=== PATIENT | female | born 1975 | race Caucasian/White ===

== ENCOUNTER 2017-09-02 20:01 | Emergency (ER) | payer MEDICAID ==
[~2017-09-02] VITALS: Ht 162.6 cm; Wt 119.7 kg
[2017-09-02] MEDS ORDERED: lexapro (20:25)
[2017-09-02] MEDS ORDERED: hydroxyzine (20:26)
[2017-09-02 20:55] LABS: BASOPHILS % (AUTO) 1 % (0-1); EOSINOPHILS # (AUTO) 0.12 x10^3/uL (0-0.4); EOSINOPHILS % (AUTO) 1 % (1-7); LYMPHOCYTES # (AUTO) 2.79 x10^3/uL (1-3.4); LYMPHOCYTES % (AUTO) 25 % (22-44); MD NO; MEAN CORPUSCULAR HEMOGLOBIN 30.7 pg (27.0-34.8); MEAN CORPUSCULAR HGB CONC 33.7 g/dL (32.4-35.8); MEAN CORPUSCULAR VOLUME 91.3 fL (80-100); MEAN PLATELET VOLUME 9.5 fL (7.4-10.4); MONOCYTES % (AUTO) 7 % (2-9); NEUTROPHILS % (AUTO) 66 % (42-75); PLATELET COUNT 321 x10^3/uL (130-400); RED BLOOD COUNT 4.87 x10^6/uL (3.82-5.3); RED CELL DISTRIBUTION WIDTH 15.1 % (9.6-15.2)
[2017-09-02 20:56] LABS: ALBUMIN 3.3 g/dL (3.4-5.0); ANION GAP 7 mmol/L (5-15); CALCIUM 9.1 mg/dL (8.5-10.1); CHLORIDE 108 mmol/L (98-107); CREATININE 0.86 mg/dL (0.55-1.02)
[2017-09-02 21:32] VITALS: BP 132/81
== END 2017-09-02 21:36 | disposition home or self-care (01) ==
LOC: ED 21:07
DX: M54.2 Cervicalgia (principal)
CPT/HCPCS: 36415; 80048; 82040; 85025; 99284

== ENCOUNTER 2018-04-17 11:07 | Emergency (ER) | payer MEDICAID ==
[~2018-04-17] VITALS: Ht 167.6 cm; Wt 113.8 kg
[~2018-04-17 11:07] MED LIST: hydroxyzine; lexapro
[2018-04-17 11:23] VITALS: BP 124/82
--- NOTE | 2018-04-17 12:28 | NUR ---
Pt to room from [facility], ambulatory with steady gait.
[2018-04-17 12:38] LABS: BASOPHILS # (AUTO) 0.07 x10^3/uL (0-0.1); BASOPHILS % (AUTO) 1 % (0-1); EOSINOPHILS % (AUTO) 0 % (1-7); LYMPHOCYTES # (AUTO) 2.28 x10^3/uL (1-3.4); LYMPHOCYTES % (AUTO) 22 % (22-44); MD NO; MEAN CORPUSCULAR HEMOGLOBIN 31.9 pg (27.0-34.8); MEAN CORPUSCULAR HGB CONC 35.1 g/dL (32.4-35.8); MEAN CORPUSCULAR VOLUME 90.9 fL (80-100); MEAN PLATELET VOLUME 10.7 fL (7.4-10.4); MONOCYTES # (AUTO) 0.53 x10^3/uL (0.2-0.8); MONOCYTES % (AUTO) 5 % (2-9); NEUTROPHILS % (AUTO) 73 % (42-75); PLATELET COUNT 303 x10^3/uL (130-400); RED BLOOD COUNT 5.17 x10^6/uL (3.82-5.3); RED CELL DISTRIBUTION WIDTH 14.7 % (9.6-15.2)
[2018-04-17 12:49] LABS: ALBUMIN 3.7 g/dL (3.4-5.0); ANION GAP 8 mmol/L (5-15); CHLORIDE 111 mmol/L (98-107); CREATININE 0.76 mg/dL (0.55-1.02)
--- NOTE | 2018-04-17 12:50 | NUR ---
BREAK RN: VONNIE OSORIO PROVIDED FOR VISITORS. EKG IN PROGRESS. PT DENIES ADDITIONAL NEEDS.
[2018-04-17 13:00] LABS: FREE T4 (FREE THYROXINE) 1.51 ng/dL (0.76-1.46)
[2018-04-17 14:10] LABS: TROPONIN I < 0.015 ng/mL (0.000-0.045)
--- NOTE | 2018-04-17 14:19 | NUR ---
REPORT FROM BENY MEDINA. PT UPDATED/AGREES TO POC (UA RESULTS, RECHECK) CRACKERS AND JUICE PROVIDED FOR PT AND FAMILY AT THIS TIME.
[2018-04-17 15:04] LABS: CULTURE INDICATED? YES; MICROSCOPIC INDICATED
--- NOTE | 2018-04-17 15:23 | NUR ---
PTS FAMILY GIVEN MORE APPLE JUICE PER REQUEST.
== END 2018-04-17 16:10 | disposition home or self-care (01) ==
LOC: ED 13:26
DX: R53.81 Other malaise (principal); R53.1 Weakness; G47.9 Sleep disorder, unspecified; Z00.01 Encounter for general adult medical examination with abnormal findings; F41.1 Generalized anxiety disorder; F32.9 Major depressive disorder, single episode, unspecified
CPT/HCPCS: 36415; 80048; 81001; 82040; 83735; 84439; 84443; 84484; 85025; 87086; 93005; 99284

== ENCOUNTER 2019-09-05 16:55 | Emergency (ER) | payer MEDICAID ==
[~2019-09-05] VITALS: Ht 165.1 cm; Wt 141.4 kg
--- NOTE | 2019-09-05 18:02 | NUR ---
OPEN DIE INSPECTOR: PT TO ROOM FROM LOBBY
--- NOTE | 2019-09-05 18:20 | NUR ---
THIS IS A 44 YO F W/ C/O RT HIP/BACK AND LWR LEG PAIN X1 WEEK. PT REPORTS WAS RECENTLY PRESCRIBED BACLOFEN AND PREDNISONE WHICH PROVIDED RELIEF. AFTER PREDNISON COURSE PAIN RETURNED. PT REPORTS SHE COULD BARELY MOVE HER LEG YESTERDAY AND HER LEG DRAGS BEHIND HER. PT IS TEARFUL. PT RESTING ON Vaavud W/ CALL LIGHT IN REACH, SOULEYMANE HERBERT. AWAITING ED EVAL.
[2019-09-05] MEDS ORDERED: KETOROLAC 30 MG/1 ML ONE (18:59)
[2019-09-05] MEDS ORDERED: MORPHINE SULFATE 4 MG/ML, 1ML ONE ×2 (19:00→20:44)
[2019-09-05] MEDS ORDERED: SODIUM CHLORIDE FLUSH 10ML SYR IVF ONE (19:00)
[2019-09-05] MEDS ORDERED: KETOROLAC 30 MG/1 ML IVPush ONE (19:00)
[2019-09-05] MEDS: MORPHINE SULFATE 4 MG/ML, 1ML IVPush PRN ×2 (19:06→20:47)
--- NOTE | 2019-09-05 19:11 | NUR ---
PIV STARTED, PT MEDICATED PER EMAR. MRI SCREENING FORM COMPLETED.
--- NOTE | 2019-09-05 19:16 | NUR ---
REPORT GIVEN TO RENNY MEDINA.
--- NOTE | 2019-09-05 19:16 | NUR ---
MRI SCREENING FORM FAXED. PT REPORTS RELIEF OF PAIN AFTER MEDS.
--- NOTE | 2019-09-05 19:18 | NUR ---
ASSUMED CARE OF PT AT THIS TIME. PT REPORTS PAIN LEVEL NOW 0 AFTER MEDICATION. AWAITING MRI.
--- NOTE | 2019-09-05 20:02 | NUR ---
PT TO MRI
--- NOTE | 2019-09-05 20:38 | NUR ---
PT RETURNED FROM MRI.
--- NOTE | 2019-09-05 20:56 | NUR ---
PT REPORTS INCREASED PAIN AFTER MRI. 2ND DOSE OF MORPHINE GIVEN.
[2019-09-05 22:02] VITALS: BP 105/62
== END 2019-09-05 22:06 | disposition home or self-care (01) ==
LOC: ED 18:16
DX: M54.16 Radiculopathy, lumbar region (principal); R41.89 Other symptoms and signs involving cognitive functions and awareness; Z87.891 Personal history of nicotine dependence; Z90.49 Acquired absence of other specified parts of digestive tract
CPT/HCPCS: 72148; 96374; 96375; 96376; 99285; J1885; J2270; 99284

== ENCOUNTER 2019-09-11 12:22 | Emergency (ER) | payer MEDICAID ==
[~2019-09-11] VITALS: Ht 165.1 cm; Wt 143.0 kg
[2019-09-11] MEDS ORDERED: ONDANSETRON ODT 4 MG ONE (12:46)
[2019-09-11] MEDS ORDERED: HYDROmorphone 1 MG/ML, 1ML INJ ONE (12:46)
[2019-09-11] MEDS ORDERED: ONDANSETRON ODT 4 MG PO ONE (13:00)
[2019-09-11] MEDS ORDERED: HYDROmorphone 2 MG/ML, 1ML IM ONE (13:00)
[2019-09-11 13:54] VITALS: BP 138/78
== END 2019-09-11 13:56 | disposition home or self-care (01) ==
LOC: ED 13:46
DX: M51.16 Intervertebral disc disorders with radiculopathy, lumbar region (principal); G89.29 Other chronic pain; F17.200 Nicotine dependence, unspecified, uncomplicated; Z90.49 Acquired absence of other specified parts of digestive tract
CPT/HCPCS: 96372; 99283; J1170; Q0162